=== PATIENT | female | born 1960 | race Caucasian/White ===

== ENCOUNTER 2016-12-17 11:51 | Observation (INO) | payer BC ==
[~2016-12-17] VITALS: Ht 167.6 cm; Wt 147.7 kg
[2016-12-17 12:55] LABS: CHLORIDE 112 mEq/L (99-109); POTASSIUM 4.2 mEq/L (3.7-5.4); SODIUM 142 mEq/L (136-147)
[2016-12-17 12:56] LABS: GLUCOSE 103 mg/dL (70-99); HEMATOCRIT 40.3 % (36.0-46.0); MCH 31.9 PG (29.0-34.0); MCHC 34.2 G/DL (30.0-36.0); MCV 93.1 FL (83-99); MEAN PLAT.VOLUME 9.6 uM^3 (9.5-12.4); PLATELET COUNT 145 K/uL (156-360); RBC DIS.WIDTH-CV 15.2 % (11.8-14.6); RBC DIS.WIDTH-SD 51.8 % (39-53); RED BLOOD COUNT 4.33 M/uL (3.80-5.20)
[2016-12-17 12:57] LABS: WHITE BLOOD COUNT 1.9 K/uL (4.1-10.2)
[2016-12-17 12:58] LABS: ANION GAP 8 MEQ/L (2-14)
[2016-12-17 13:01] LABS: UREA NITROGEN (BUN) 9 mg/dL (9-23)
[2016-12-17 13:02] LABS: GFR ESTIMATE (CALCULATED) > 59 mL/min/
[2016-12-17] MEDS ORDERED: ADVIL200 MG PO (13:31)
[2016-12-17] MEDS ORDERED: K-DUR20 MEQ PO (13:31)
[2016-12-17] MEDS ORDERED: FUROSEMIDE40 MG PO (13:31)
[2016-12-17] MEDS ORDERED: CLARITIN10 M3 PO (13:32)
[2016-12-17 14:18] LABS: TOTAL BILIRUBIN 2.5 mg/dL (0.0-1.0)
[2016-12-17 14:19] LABS: ALKALINE PHOSPHATASE 78 IU/L (3-129)
[2016-12-17 14:43] LABS: COLOR YELLOW ((YELLOW)); LEUKOCYTES TRACE; NITRITE NEGATIVE; PROTEIN (STRIP) NEGATIVE
[2016-12-17 14:44] LABS: ADD MIUA? YES; BILIRUBIN SMALL; BLOOD LARGE; GLUCOSE (STRIP) NEGATIVE; KETONES NEGATIVE; UROBILINOGEN 0.2 MG/DL (0.2-1.0)
[2016-12-17 14:48] LABS: BACTERIA 3+ /HPF; EPITHELIAL CELLS 2+ /HPF; RED BLOOD CELLS 20-30 /HPF (0-5); UCUL ADDED? NO; WHITE BLOOD CELLS 0-5 /HPF (0-5)
[2016-12-17 14:49] LABS: AMORPHOUS PHOSPHATE CRYSTALS 3+; CRYSTALS PRESENT; MUCUS TRACE /LPF
[2016-12-17] MEDS ORDERED: CLARITIN5 MG PO (16:02)
[2016-12-17] MEDS ORDERED: CENTRUM SILVER1 EAC4 PO (16:03)
[2016-12-17] MEDS ORDERED: GAVISCON ES CH1 EACH PO (16:04)
[2016-12-17 16:55] VITALS: BP 160/72
[2016-12-17 19:21] VITALS: BP 142/77
[2016-12-18 04:00] VITALS: BP 134/59
[2016-12-18 06:09] LABS: HEMATOCRIT 35.3 % (36.0-46.0); MCH 31.4 PG (29.0-34.0); MCHC 33.4 G/DL (30.0-36.0); MCV 93.9 FL (83-99); MEAN PLAT.VOLUME 9.8 uM^3 (9.5-12.4); PLATELET COUNT 122 K/uL (156-360); RBC DIS.WIDTH-CV 15.6 % (11.8-14.6); RBC DIS.WIDTH-SD 53.1 % (39-53); RED BLOOD COUNT 3.76 M/uL (3.80-5.20)
[2016-12-18 06:10] LABS: WHITE BLOOD COUNT 1.9 K/uL (4.1-10.2)
[2016-12-18 06:49] LABS: ANION GAP 8 MEQ/L (2-14); CHLORIDE 109 MEQ/L (99-109); GFR ESTIMATE (CALCULATED) > 59 mL/min/; GLUCOSE 97 mg/dL (70-99); POTASSIUM 3.8 MEQ/L (3.7-5.4); SAMPLE HEMOLYSIS CHECK 0; SAMPLE ICTERIC CHECK 1; SAMPLE LIPEMIA CHECK 0; SODIUM 140 MEQ/L (136-147); UREA NITROGEN (BUN) 10 mg/dL (9-23)
[2016-12-18 07:37] VITALS: BP 137/64
[2016-12-18 12:15] VITALS: BP 143/68
[2016-12-18] MEDS ORDERED: ENULOSE10 GM/15 M PO (14:42)
== END 2016-12-18 15:43 | disposition home or self-care (01) ==
LOC: EME 11:51 → EDOF 15:23 → 5WEST 15:23
PROVIDERS: Emergency Medicine; Internal Medicine
DX: K72.90 Hepatic failure, unspecified without coma (principal); K74.60 Unspecified cirrhosis of liver; D70.9 Neutropenia, unspecified; D69.6 Thrombocytopenia, unspecified; Z87.891 Personal history of nicotine dependence
CPT/HCPCS: 70450; 71020; 80048; 80076; 81003; 82140; 85027; 93005; 99281; 99285; G0378; J1650; J7030